=== PATIENT | female | born 1990 | race Caucasian/White ===

== ENCOUNTER 2020-02-17 17:19 | Inpatient (IN) | payer BC ==
[~2020-02-17 17:19] MED LIST: Bupivacaine 0.25% HCL 30 ML VIAL ONE
--- NOTE | 2020-02-17 17:36 | PDOC.LDHP ---
Labor and Delivery H&P Chief complaint: loss of fluid HPI: Patient reports waking up at 0330 thinking she was more wet than normal. She waited a few hours to see if was her water and reports that she continued to leak clear, or pink tinged fluid all day. Especially with contraction or movement. Her baby has been moving well all day. Her contractions are irregular, occasionally painful, but pretty irregular between 5-15 minutes apart. Current gestational age (weeks): 39 Due date: 02/21/20 Grav: 1 Para: 0 Current complications: none Abnormal US findings: No Current medications: pre- vitamins Social history: none - Physical Exam Vital signs reviewed and normal: yes General: NAD, breathing through contractions Lungs: nonlabored breathing Abdomen: gravid Extremeties: trace edema FHT: category 1 - Vaginal Exam cm dilated: 1 Effacement: 25% Station: -3 - Assessment L&D Assessment: term rupture in membranes - Plan Plan: admit to L&D, cervical ripening (five dilapan were placed in cervix at [facility] at 1600), informed consent obtained, anesthesia consult for pain management -: Regular diet x 1 Removal of dilapan at 0440 and reevaluate
[2020-02-17] MEDS ORDERED: Methylergonovine 0.2 MG/ML VIAL IM PRN (17:41)
[2020-02-17] MEDS ORDERED: HYDROcodone/Acetaminophen 5/325 mg Tablet PO PRN ×2 (17:41)
[2020-02-17] MEDS ORDERED: NS / Oxytocin 40 units/1000ml 1,000 ML IV PRN (17:41)
[2020-02-17] MEDS ORDERED: Promethazine HCl 25 MG/ML VIAL IM PRN (17:41)
[2020-02-17] MEDS ORDERED: Butorphanol Tartrate 1 MG/ML VIAL SLOW IVP PRN (17:41)
[2020-02-17] MEDS ORDERED: Lidocaine 1% (PF) 30 ML VIAL SC PRN (17:41)
[2020-02-17] MEDS ORDERED: hydrALAZINE 20 MG/ML VIAL SLOW IVP PRN (17:41)
[2020-02-17] MEDS ORDERED: Ondansetron PF 4 MG/2 ML Vial IVP PRN (17:41)
[2020-02-17] MEDS ORDERED: Ibuprofen 800 MG TAB PO PRN (17:41)
[2020-02-17] MEDS ORDERED: NS w/ Oxytocin 10 units 500 ML IV SCH (18:15)
[2020-02-17 18:16] VITALS: BMI 31.1
[2020-02-17 19:08] LABS: Hemoglobin 13.3 g/dL (12.0-16.0); Mean Corpuscular HGB CONC 34.3 g/dL (32.0-36.0); Mean Corpuscular Hemoglobin 31.7 pg (27.0-31.0); Mean Corpuscular Volume 92.6 fL (78.0-98.0); Platelet Count 177 thou/uL (130-400); RBC Distribution Width 12.8 % (11.5-14.5); White Blood Cell (WBC) Count 13.7 thou/uL (4.8-10.8)
[2020-02-17 20:07] LABS: Syphilis Antibody Nonreactive (Nonreactive); Syphilis Antibody Index 0.07 S/CO (<1.00 Non-Reactive)
[2020-02-18 00:07] LABS: HBSAg Index 0.14 S/CO (0-0.99); Hep B Surf Ag Non-Reactive S/CO (NonReactive)
[2020-02-18 06:23] LABS: SARS-CoV-2 MS2 Positive; SARS-CoV-2 N Gene Negative; SARS-CoV-2 S Gene Negative; SARS-CoV-2 by NAA Not Detected (NotDetected); SARS-CoV-2 orf1ab Negative
--- NOTE | 2020-02-18 15:16 | PDOC.BPN ---
- Brief Progress Note Encounter Date: 02/18/20 Encounter Time: 15:09 contractions were every 5 minutes this morning with moderate pain. Given breast pump to try to encourage natural oxytocin. Unchanged after several hours of breast pump stimulation. Recommended starting on pitocin.
[2020-02-18] MEDS ORDERED: Naloxone HCl 0.4 mg/ml Vial IV PRN (17:09)
[2020-02-18] MEDS ORDERED: Fentanyl 4 mcg/Bup 0.1% Cadd 100 ML in Premix Bag 1 BAG EPIDURAL SCH (17:15)
[2020-02-18] MEDS ORDERED: Ondansetron PF 4 MG/2 ML Vial IVP PRN (17:49)
[2020-02-18] MEDS ORDERED: Lactated Ringer's 500 ML IV PRN (17:49)
[2020-02-18] MEDS ORDERED: Promethazine HCl 25 MG/ML VIAL IM PRN (17:49)
[2020-02-18] MEDS ORDERED: Acetaminophen 325 MG TAB PO PRN (17:49)
[2020-02-18] MEDS ORDERED: ePHEDrine 50 MG/ML VIAL SLOW IVP PRN (17:49)
[2020-02-18] MEDS ORDERED: diphenhydrAMINE 50 MG/ML VIAL IVP PRN (17:49)
[2020-02-18] MEDS ORDERED: Naloxone HCl 0.4 mg/ml Vial IVP PRN ×2 (17:49)
[2020-02-18] MEDS ORDERED: Communication Order-Pharmacy FS SCH (18:00)
[2020-02-18] MEDS ORDERED: Fentanyl 4 mcg/Bupivacaine 0.1% Cassette 100 ML EPIDURAL SCH (18:00)
[2020-02-18] MEDS ORDERED: Calcium Carbonate 500 MG ChewTAB PO PRN (19:30)
[2020-02-18] MEDS: Lactated Ringer's 1,000 ML IV SCH (19:54)
[2020-02-19] MEDS ORDERED: Benzocaine-Menthol 82.5 ML CAN TOP PRN (08:33)
[2020-02-19] MEDS ORDERED: hydrALAZINE 20 MG/ML VIAL SLOW IVP PRN (08:33)
[2020-02-19] MEDS ORDERED: Milk Of Magnesia 30 ML UDCUP PO PRN (08:33)
[2020-02-19] MEDS ORDERED: Ondansetron PF 4 MG/2 ML Vial IVP PRN (08:33)
[2020-02-19] MEDS ORDERED: Bisacodyl 10 MG SUPP PR PRN (08:33)
[2020-02-19] MEDS ORDERED: Misoprostol 200 MCG TAB VAG PRN (08:33)
[2020-02-19] MEDS ORDERED: Adacel (T-DAP) 0.5 ML SYRINGE IM ONE (08:33)
[2020-02-19] MEDS ORDERED: Methylergonovine 0.2 MG/ML VIAL IM PRN (08:33)
[2020-02-19] MEDS ORDERED: Lanolin Ointment 7 GM TUBE TOP PRN (08:33)
[2020-02-19] MEDS ORDERED: HYDROcodone/Acetaminophen 5/325 mg Tablet PO PRN ×2 (08:33)
[2020-02-19] MEDS ORDERED: NS / Oxytocin 40 units/1000ml 1,000 ML IV SCH (08:33)
[2020-02-19] MEDS: Prenatal Vitamin 1 TAB PO SCH (09:32)
[2020-02-19] MEDS: Docusate Calcium (SURFAK) 240 MG CAP PO SCH ×2 (09:32→20:41)
[2020-02-19] MEDS: Ibuprofen 800 MG TAB PO SCH ×3 (10:44→20:41)
[2020-02-19] MEDS: Lactated Ringer's 1,000 ML IV SCH (10:46)
[2020-02-19] MEDS: Ferrous Sulfate 325 MG TAB PO SCH ×2 (10:47→17:34)
[2020-02-20] MEDS: Ibuprofen 800 MG TAB PO SCH ×3 (05:44→20:36)
[2020-02-20] MEDS: Ferrous Sulfate 325 MG TAB PO SCH ×2 (08:00→14:50)
[2020-02-20] MEDS: Docusate Calcium (SURFAK) 240 MG CAP PO SCH ×2 (09:27→20:35)
[2020-02-20] MEDS: Prenatal Vitamin 1 TAB PO SCH (09:27)
--- NOTE | 2020-02-20 11:21 | PDOC.PP ---
Post Progress Note Post Day #: 1 Subjective: Pt is doing well. She is . Up to the bathroom urinating and passing gas. PO intake tolerated: yes Flatus: yes Ambulation: yes Vital Signs (12 hours) Temp Pulse Resp BP BP Pulse Ox 02/20/20 08:00 97.9 F 65 18 107/57 L 96 02/20/20 05:48 98.1 F 66 16 110/66 02/20/20 00:20 98.7 F 82 18 112/64 Weight Weight 193 lb - Physical Examination General: NAD Respiratory: non-labored breathing Abdominal: no distention Extremities: negative homans (B) Skin: no rash Neurological: no gross focal deficits Psychiatric: A&Ox3, normal affect Result Diagrams: 02/17/20 18:48 Additional Labs: Post Labs Hep Bs Antigen Non-Reactive S/CO (NonReactive) 02/17/20 18:48 Blood Type A POSITIVE 02/17/20 19:28 (1) (spontaneous vaginal delivery) Code(s): O80 - ENCOUNTER FOR FULL-TERM UNCOMPLICATED DELIVERY Status: Acute (2) Prolonged rupture of membranes, delivered Code(s): [id number] - Status: Acute - Assessment/Plan A; G1 now P1 s/p with NML ppd 1 exam P routine care evaluate for infection
[2020-02-21] MEDS: Ibuprofen 800 MG TAB PO SCH (05:15)
[2020-02-21] MEDS: Ferrous Sulfate 325 MG TAB PO SCH (07:35)
[2020-02-21] MEDS: Docusate Calcium (SURFAK) 240 MG CAP PO SCH (08:10)
[2020-02-21] MEDS: Prenatal Vitamin 1 TAB PO SCH (08:10)
[2020-02-21 08:11] VITALS: BP 108/68; TEMP 98
== END 2020-02-21 12:30 | disposition home or self-care (01) | DRG 807 ==
LOC: L&D-LIB 17:19 → L&D 02-18 13:30 → 3SW 02-19 08:27
PROVIDERS: ADMIT Obstetrics & Gynecology; ATTEND Obstetrics & Gynecology
PROC: 10E0XZZ Delivery of Products of Conception, External Approach (ICD-10-PCS; principal; 2020-02-19)
DX: O80 Encounter for full-term uncomplicated delivery (principal); Z37.0 Single live birth; Z20.828 Contact with and (suspected) exposure to other viral communicable diseases; Z3A.39 39 weeks gestation of pregnancy
CPT/HCPCS: 36415; 51702; 85027; 86780; 86850; 86900; 86901; 87340; 87635; J2590; S0020; U0003

== ENCOUNTER 2020-03-28 01:35 | Observation (INO) | payer BC ==
[2020-03-28 02:08] LABS: #Basophils 0.1 thou/uL (0.0-0.2); #Eosinphils 0.3 thou/uL (0.0-0.7); #Lymphocytes 3.7 thou/uL (1.20-3.40); #Monocytes 0.9 thou/uL (0.11-0.59); #Neutrophils 5.3 thou/uL (1.40-6.50); %Basophils 0.6 % (0.0-1.0); %Lymphocytes 36.1 % (21.0-51.0); %Monocytes 8.6 % (0.0-10.0); %Neutrophils 51.7 % (42.0-75.0); Hemoglobin 11.6 g/dL (12.0-16.0); Mean Corpuscular HGB CONC 33.8 g/dL (32.0-36.0); Mean Corpuscular Hemoglobin 30.8 pg (27.0-31.0); Mean Corpuscular Volume 91.1 fL (78.0-98.0); Platelet Count 237 thou/uL (130-400); RBC Distribution Width 11.8 % (11.5-14.5); Red Blood Cell (RBC) Count 3.78 mill/uL (4.20-5.40); White Blood Cell (WBC) Count 10.2 thou/uL (4.8-10.8)
[2020-03-28 02:29] LABS: ALT (SGPT) 20 U/L (8-55); AST (SGOT) 17 U/L (5-34); Albumin 3.8 g/dL (3.5-5.0); Alkaline Phosphatase 55 U/L (40-110); Anion Gap 12 mmol/L (10-20); BUN (Urea Nitrogen) 21 mg/dL (7.0-18.7); Bilirubin, Total 0.2 mg/dL (0.2-1.2); Calc. Creatinine Clearance 0 mL/min (70-130); Calcium 8.8 mg/dL (7.8-10.44); Carbon Dioxide 25 mmol/L (22-29); Chloride 106 mmol/L (98-107); Globulin 2.5 g/dL (2.4-3.5); Glucose 127 mg/dL (70-105); Potassium 3.3 mmol/L (3.5-5.1); Protein, Total 6.3 g/dL (6.0-8.3); Sodium 140 mmol/L (136-145)
[2020-03-28 03:15] LABS: SARS-CoV-2 NAA Rapid Test Not Detected (NotDetected)
[2020-03-28 03:53] LABS: Hemoglobin 10.5 g/dL (12.0-16.0); Mean Corpuscular HGB CONC 33.8 g/dL (32.0-36.0); Mean Corpuscular Hemoglobin 30.8 pg (27.0-31.0); Mean Corpuscular Volume 91.1 fL (78.0-98.0); Mean Platelet Volume 6.9 fL (7.4-10.4); Platelet Count 181 thou/uL (130-400); RBC Distribution Width 11.7 % (11.5-14.5); Red Blood Cell (RBC) Count 3.42 mill/uL (4.20-5.40); White Blood Cell (WBC) Count 15.1 thou/uL (4.8-10.8)
[2020-03-28] MEDS ORDERED: Ondansetron ODT 4 MG TAB PO PRN (04:06)
[2020-03-28] MEDS ORDERED: medroxyPROGESTERone Acetate 5 MG TAB PO SCH ×2 (05:00→21:00)
--- NOTE | 2020-03-28 05:17 | HP ---
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 CHIEF COMPLAINT: Heavy bleeding, dizziness. HISTORY OF PRESENT ILLNESS: Ms. Wood is a 29-year-old white G1, now P1, status post vaginal delivery 5 weeks ago, who presents to the ER complaining of heavy vaginal bleeding and dizziness. Upon her arrival, her blood pressure was 87/45. In the ER, she was given a liter of fluid. The patient states that 5 weeks ago she had an uncomplicated vaginal delivery. She states there was no problem either with the delivery of the baby or the delivery of the placenta. Since delivery, she says she has bled continuously, but denies heavy bleeding with clots until this time. PAST OBSTETRICAL HISTORY: As above. PAST MEDICAL HISTORY: Unremarkable. PAST SURGICAL HISTORY: Includes tonsillectomy. CURRENT MEDICATIONS: vitamins. ALLERGIES: NO KNOWN ALLERGIES. SOCIAL HISTORY: Denies tobacco, alcohol, or drug use. FAMILY HISTORY: Unremarkable. REVIEW OF SYSTEMS: Positive for dizziness and lightheadedness. Negative for nausea, vomiting, fever, chills, cough, or shortness of breath. PHYSICAL EXAMINATION: VITAL SIGNS: Blood pressure now after a liter of fluid in the ER is 110/75 with a pulse of 78. GENERAL: She is pleasant and in no acute distress. CHEST: Clear to auscultation. CARDIOVASCULAR: Regular rate and rhythm. ABDOMEN: Soft and nontender. There is no guarding or rebound. PELVIC: Bimanual or pelvic examination shows the uterus to be upper limits normal size and the cervix is closed. There is blood in the vault, but she is not actively bleeding at this time. LABORATORY DATA: Initial CBC shows a white count of 10.2, hemoglobin and hematocrit 11.6 and 34.5 respectively. Platelet count is 237,000. Her H and H are repeated approximately 2 hours after initial assessment, and her hemoglobin returns 10.5 and 31.2. The remainder of her laboratories are essentially within limits with a creatinine of 0.087, a BUN of 21, a glucose of 127, total bilirubin 0.2, AST and ALT are 17 and 20 respectively. Beta HCG is less than 1.2. Influenza A and B studies are negative. COVID testing is negative. Ultrasound done this evening in the emergency room shows a thickened endometrium, and her ovaries are not well visualized. ASSESSMENT: 1. Abnormal uterine bleeding. 2. Status post vaginal delivery five weeks ago. PLAN: At this time, the patient is reluctant to undergo a D&C. She will be admitted for observation, and I have started her on Provera 20 mg b.i.d. as well as Lysteda 1300 mg t.i.d. She has another hemoglobin due at 8 o'clock this morning. I have kept her n.p.o. with ice chips, and she will be watched closely. Dr. Kelley comes on in the morning, and I will review the case with him. Job ID: [id number] [facility]
[2020-03-28] MEDS ORDERED: Tranexamic Acid 650 MG TAB PO SCH (06:00)
[2020-03-28] MEDS: Acetaminophen 325 MG TAB PO PRN ×2 (06:22→11:41)
[2020-03-28 06:25] VITALS: BMI 25.9
--- NOTE | 2020-03-28 07:58 | ULT ---
PRELIMINARY REPORT/[facility]/EMERGENCY AFTER HOURS PROCEDURE: EXAM: US Pelvis, Complete. CLINICAL HISTORY: Pelvic cramping pain, heavy vaginal bleeding with clots tonight, post 5 wks TECHNIQUE: Transvaginal and transabdominal pelvic ultrasound (complete) with image documentation. COMPARISON: None provided. FINDINGS: ENDOMETRIUM: Thickened vascular heterogeneous endometrium measures 2 cm UTERUS/CERVIX: Normal size and contour. No fibroid detected. RIGHT OVARY: Not visualized LEFT OVARY: Not visualized FREE FLUID: No free fluid. IMPRESSION: Thickened vascular heterogeneous endometrium concerning for retained products of conception given the clinical history ELECTRONICALLY SIGNED BY: Juan Gray MD Mar 28, 2020 3:02:16 AM END MATCHER This report is intended for review by the ordering physician only, in accordance of law. If you recei ve this report in error, please call [facility] at [phone]. FINAL REPORT EMERGENCY AFTER HOURS PELVIC ULTRASOUND: FINDINGS/IMPRESSION: I agree with the findings and impression given in the preliminary report per [facility] physici an. There is thickening of the endometrial stripe. This could represent blood products or retained produc ts of conception. POS: ELGIN
[2020-03-28 08:20] LABS: #Eosinphils 0.1 thou/uL (0.0-0.7); #Lymphocytes 1.3 thou/uL (1.20-3.40); #Monocytes 0.6 thou/uL (0.11-0.59); #Neutrophils 10.2 thou/uL (1.40-6.50); %Basophils 0.2 % (0.0-1.0); %Eosinophils 0.4 % (0.0-10.0); %Lymphocytes 10.6 % (21.0-51.0); %Monocytes 5.1 % (0.0-10.0); %Neutrophils 83.7 % (42.0-75.0); Hemoglobin 10.1 g/dL (12.0-16.0); Mean Corpuscular Hemoglobin 30.6 pg (27.0-31.0); Mean Corpuscular Volume 92.6 fL (78.0-98.0); Platelet Count 166 thou/uL (130-400); RBC Distribution Width 11.7 % (11.5-14.5); White Blood Cell (WBC) Count 12.2 thou/uL (4.8-10.8)
[2020-03-28 12:16] VITALS: BP 108/55; TEMP 98.6
--- NOTE | 2020-03-28 20:00 | DIS ---
DATE OF ADMISSION: 03/28/2020 DATE OF DISCHARGE: 03/28/2020 ADMITTING DIAGNOSES: 1. Abnormal uterine bleeding. 2. 5 weeks' . DISCHARGE DIAGNOSES: 1. Abnormal uterine bleeding. 2. 5 weeks' . HISTORY OF PRESENT ILLNESS: The patient is a 29-year-old female about 5 weeks' , who began having extremely heavy bleeding this morning, enough that she was saturating through heavy pads several an hour and blood to her clothes twice. Up until that point, the patient was having some bleeding where she was changing a light panty liner 3 to 4 times a day. The patient reports she was having a little bit of increased cramping the day or two prior to this. She is breast-feeding. She denies fever or other signs of infection at time of presentation. She was given one dose of Lysteda 1350 mg and 20 mg of medroxyprogesterone prior to getting up to the floor. By the time she got up here, her bleeding has much improved to where it is scant now. Ultrasound showed a slightly thickened endometrium described as thickened vascular heterogeneous endometrium measuring 2 cm. Blood pressure at time of discharge 108/55, temperature 98.6, pulse of 88, respiratory rate of 20, saturating 99% on room air. Her discharge hemoglobin is 10.1, hematocrit 30.6, and platelets of 166,000; down from 11.6 on admission. We have reviewed the patient's options in terms of management. Option #1 is for her to go home and continue on the high-dose progesterone for a period of time and the Lysteda as prescribed, my concern is given that her state and breast-feeding that that may alter her breast milk production given the high dose of progestins and increase her risk for blood clots, DVTs. Given that she had responded so quickly, we gave another option which is to take medroxyprogesterone 5 mg twice a day until her bleeding slows and then to take it once a day for the next week and ibuprofen 600 mg every 6 hours until her bleeding slows down. She does understand that there is a chance that her bleeding will become severe again and require a re-presentation to the hospital. The patient prefers to try the second option, so she will be going home with medroxyprogesterone 5 mg twice a day until bleeding slows. In addition, she will be on ibuprofen 600 mg every 6 hours until her bleeding slows. Given the timing and her symptoms, this sounds to be just her first period after delivery. If so, anticipate resolution of her bleeding over the coming days. She has an appointment with Vielka Archer next Friday for followup. She has been informed of the plan. Job ID: [id number]
== END 2020-03-28 12:55 | disposition home or self-care (01) ==
LOC: ERS 01:35 → 3SW 05:57
PROVIDERS: ADMIT Obstetrics & Gynecology; ATTEND Obstetrics & Gynecology
DX: O72.2 Delayed and secondary postpartum hemorrhage (principal); Z20.822 Contact with and (suspected) exposure to COVID-19
CPT/HCPCS: 0240U; 36415; 76856; 80053; 84702; 85025; 86850; 86900; 86901; 99284; G0378